=== PATIENT | male | born 1970 | race African-American/Black ===

== ENCOUNTER 2019-12-26 16:35 | Emergency (ER) | payer SELFPAY ==
[~2019-12-26] VITALS: Ht 188 cm; Wt 117.0 kg
[2019-12-26] MEDS ORDERED: SODIUM CHLORIDE 0.9% 1,000 ML IV ONE (17:11)
[2019-12-26] MEDS ORDERED: ACETAMINOPHEN 325MG TABLET PO STA (17:11)
[2019-12-26] MEDS ORDERED: VANCOMYCIN 1 G PREMIX 200 ML IV ONE (17:15)
[2019-12-26] MEDS ORDERED: PIPERACILLIN/TAZ 3.375G PREMIX 50 ML IV ONE (17:15)
[2019-12-26] MEDS ORDERED: SODIUM CHLORIDE 0.9% 1000ML BAG (SEPSIS BOLUS) IV ONE (17:15)
[2019-12-26 17:40] LABS: BASOPHILS % 0.7 % (0.0-2.0); EOSINOPHILS % 0.2 % (0.0-5.0); HEMATOCRIT. 44.4 % (42.0-52.0); LYMPHOCYTES % 9.1 % (20.0-50.0); MEAN CORPUSCULAR HEMOGLOBIN 29.8 pg (28.0-32.0); MEAN CORPUSCULAR VOLUME 87.9 fL (80.0-94.0); PLATELET 187 x1000/uL (130-400); RED BLOOD CELL COUNT 5.05 mill/uL (4.7-6.1); RED CELL DISTRIBUTION WIDTH 13.5 % (11.6-14.6)
[2019-12-26 17:44] LABS: CHLORIDE 102 mEq/L (98-107)
[2019-12-26 17:45] LABS: PROTHROMBIN TIME 10.4 sec (9.6-11.0)
[2019-12-26 19:15] LABS: CLARITY URINE CLEAR (CLEAR); COLOR URINE YELLOW (YELLOW); KETONES URINE NEGATIVE (NEGATIVE); LEUKOCYTE ESTERASE URINE NEGATIVE (NEGATIVE); NITRITE URINE NEGATIVE (NEGATIVE); OCCULT BLOOD URINE NEGATIVE (NEGATIVE); PROTEIN URINE NEGATIVE (NEGATIVE); SPECIFIC GRAVITY URINE 1.013 (1.005-1.030); UROBILINOGEN URINE 0.2 E.U./dL (0.2-1.0)
[2019-12-26] MEDS ORDERED: IOHEXOL-300 100 ML BOTTLE ONE (21:34)
[2019-12-26] MEDS ORDERED: SODIUM CHLORIDE 0.45% 1,000 ML IV SCH (23:09)
[2019-12-26] MEDS ORDERED: ENOXAPARIN 40MG/0.4ML SYR SUBCUT SCH (23:15)
[2019-12-26] MEDS ORDERED: ONDANSETRON HCL 4MG/2ML INJ IV PRN (23:15)
[2019-12-26] MEDS ORDERED: HYDROCODONE/ACETAMINOPHEN 10/325MG TABLET PO PRN (23:15)
[2019-12-26] MEDS ORDERED: DEXTROSE 50% WATER 50ML SYRINGE IV PRN (23:15)
[2019-12-26] MEDS ORDERED: IPRATROPIUM/ALBUTEROL 0.5-3(2.5)MG/3ML NEB NEB PRN (23:15)
[2019-12-26] MEDS ORDERED: NA PHOS,M-B/NA PHOS,DI-BA ENEMA 118ML PR PRN (23:15)
[2019-12-26] MEDS ORDERED: MAGNESIUM/ALUMINUM HYDROXIDE/SIMETHICONE 30ML UDC PO PRN (23:15)
[2019-12-26] MEDS ORDERED: PIPERACILLIN/TAZ 3.375G PREMIX 50 ML IV SCH (23:15)
[2019-12-26] MEDS ORDERED: MORPHINE SULFATE 2 MG/ML CPJ (NOT FOR IM USE) IV PRN (23:15)
[2019-12-26] MEDS ORDERED: CLONIDINE 0.1MG TABLET PO PRN (23:15)
[2019-12-26] MEDS ORDERED: GUAIFENESIN 200MG/10ML SUGAR FREE UDC PO PRN (23:15)
[2019-12-26] MEDS ORDERED: DIPHENHYDRAMINE 50MG/ML VIAL IV PRN (23:15)
[2019-12-26] MEDS ORDERED: ACETAMINOPHEN 325MG TABLET PO PRN (23:15)
[2019-12-26] MEDS ORDERED: HYDRALAZINE 20MG/ML VIAL IV PRN (23:15)
[2019-12-26] MEDS ORDERED: DOCUSATE SODIUM 100MG CAPSULE PO PRN (23:15)
[2019-12-26] MEDS ORDERED: LORAZEPAM 2MG/ML CPJ IV PRN (23:15)
[2019-12-27 00:10] VITALS: BP 153/88
[2019-12-27] MEDS ORDERED: SODIUM CHLORIDE 0.9% INJ 3ML FLUSH IVF SCH (06:00)
[2019-12-27] MEDS ORDERED: INSULIN LISPRO 100 UNITS/ML SUBCUT SCH (08:20)
[2019-12-27] MEDS ORDERED: BLOOD SUGAR DIAGNOSTIC STRIP TEST SCH (09:00)
== END 2019-12-27 01:51 | disposition left against medical advice (07) ==
LOC: ER 16:35 → EDBEDREQSVC 20:00 → EDBEDREQTM 20:02 → EDBEDREQ 20:02 → ER 12-27 01:51 → CANRESERV 12-27 13:59 → ENRESERV 12-27 13:59 → CANBEDREQ 12-27 16:55
DX: K08.89 Other specified disorders of teeth and supporting structures (principal); R65.10 Systemic inflammatory response syndrome (SIRS) of non-infectious origin without acute organ dysfunction; D66 Hereditary factor VIII deficiency
CPT/HCPCS: 36415; 70487; 71045; 80053; 81003; 83605; 84145; 84484; 85025; 85610; 87040; 87086; 93005; 96361; 96365; 96366; 96368; 96376; 99291; J2270; J2405; J2543; J3370; J7030; Q9967

== ENCOUNTER 2019-12-27 02:02 | Inpatient (IN) | payer SELFPAY ==
[~2019-12-27] VITALS: Ht 185.4 cm; Wt 131.5 kg
[2019-12-27 04:26] LABS: CHLORIDE 103 mEq/L (98-107)
[2019-12-27] MEDS ORDERED: VANCOMYCIN 1 G PREMIX 200 ML IV SCH ×2 (04:45→17:00)
[2019-12-27 04:50] LABS: BASOPHILS % 0.2 % (0.0-2.0); EOSINOPHILS % 0.1 % (0.0-5.0); HEMOGLOBIN. 13.9 g/dL (14.0-18.0); LYMPHOCYTES % 8.5 % (20.0-50.0); MEAN CORPUSCULAR HEMOGLOBIN 29.8 pg (28.0-32.0); MEAN CORPUSCULAR VOLUME 87.5 fL (80.0-94.0); MEAN PLATELET VOLUME 10.5 fl (7.4-10.4); MONOCYTES % 8.2 % (2.0-8.0); PLATELET 174 x1000/uL (130-400); RED BLOOD CELL COUNT 4.68 mill/uL (4.7-6.1); RED CELL DISTRIBUTION WIDTH 13.3 % (11.6-14.6)
[2019-12-27] MEDS ORDERED: MORPHINE SULFATE 4 MG/ML CPJ (NOT FOR IM USE) IV ONE (06:00)
[2019-12-27] MEDS ORDERED: ONDANSETRON HCL 4MG/2ML INJ IV ONE (06:00)
[2019-12-27] MEDS ORDERED: PIPERACILLIN/TAZOBACTAM 3.375GM/50ML PREMIX IV ONE (06:03)
[2019-12-27] MEDS ORDERED: MAGNESIUM/ALUMINUM HYDROXIDE/SIMETHICONE 30ML UDC PO PRN (07:30)
[2019-12-27] MEDS ORDERED: ONDANSETRON HCL 4MG/2ML INJ IV PRN (07:30)
[2019-12-27] MEDS ORDERED: DOCUSATE SODIUM 100MG CAPSULE PO PRN (07:30)
[2019-12-27] MEDS ORDERED: PIPERACILLIN/TAZ 3.375G PREMIX 50 ML IV SCH ×2 (07:30→14:00)
[2019-12-27] MEDS ORDERED: HYDRALAZINE 20MG/ML VIAL IV PRN (07:30)
[2019-12-27] MEDS ORDERED: LORAZEPAM 2MG/ML CPJ IV PRN (07:30)
[2019-12-27] MEDS ORDERED: CLONIDINE 0.1MG TABLET PO PRN (07:30)
[2019-12-27] MEDS ORDERED: GUAIFENESIN 200MG/10ML SUGAR FREE UDC PO PRN (07:30)
[2019-12-27] MEDS ORDERED: DIPHENHYDRAMINE 50MG/ML VIAL IV PRN (07:30)
[2019-12-27] MEDS ORDERED: ACETAMINOPHEN 325MG TABLET PO PRN (07:30)
[2019-12-27] MEDS ORDERED: IPRATROPIUM/ALBUTEROL 0.5-3(2.5)MG/3ML NEB HHN PRN (07:30)
[2019-12-27 09:00] VITALS: BP 137/79
[2019-12-27] MEDS: SODIUM CHLORIDE 0.45% 1,000 ML IV SCH (10:34)
[2019-12-27] MEDS: ENOXAPARIN 30MG/0.3ML SYR SUBCUT SCH ×2 (10:34→21:08)
[2019-12-27] MEDS: HYDROCODONE/ACETAMINOPHEN 10/325MG TABLET PO PRN ×2 (10:36→18:12)
[2019-12-27 12:00] VITALS: BP 139/83
[2019-12-27] MEDS ORDERED: VANCOMYCIN 1,750 MG in DEXT 5% WATER 250 ML IV SCH (14:00)
[2019-12-27 16:00] VITALS: BP 162/102
[2019-12-27] MEDS: SODIUM CHLORIDE 0.9% INJ 3ML FLUSH IVF SCH ×2 (18:08→21:11)
[2019-12-27] MEDS: VANCOMYCIN 1 G PREMIX 200 ML IV SCH ×2 (18:08→21:11)
[2019-12-27 20:00] VITALS: BP 147/93
[2019-12-27] MEDS: MORPHINE SULFATE 2 MG/ML CPJ (NOT FOR IM USE) IV PRN (20:45)
[2019-12-28] VITALS: BP 142/76
[2019-12-28] MEDS: MORPHINE SULFATE 2 MG/ML CPJ (NOT FOR IM USE) IV PRN ×2 (00:40→06:24)
[2019-12-28] MEDS: PIPERACILLIN/TAZOBACTAM 3.375 G in DEXT 5% WATER 100 ML IV SCH ×2 (01:08→05:19)
[2019-12-28] MEDS: SODIUM CHLORIDE 0.45% 1,000 ML IV SCH (03:26)
[2019-12-28 04:00] VITALS: BP 147/93
[2019-12-28] MEDS: SODIUM CHLORIDE 0.9% INJ 3ML FLUSH IVF SCH (05:19)
[2019-12-28] MEDS: VANCOMYCIN 1 G PREMIX 200 ML IV SCH (06:13)
[2019-12-28 06:24] VITALS: BP 142/76
[2019-12-28 07:28] LABS: BASOPHILS % 0.4 % (0.0-2.0); EOSINOPHILS % 0.1 % (0.0-5.0); HEMATOCRIT. 40.4 % (42.0-52.0); HEMOGLOBIN. 13.9 g/dL (14.0-18.0); LYMPHOCYTES % 9.6 % (20.0-50.0); MEAN CORPUSCULAR HEMOGLOBIN 29.9 pg (28.0-32.0); MEAN CORPUSCULAR VOLUME 86.8 fL (80.0-94.0); MEAN PLATELET VOLUME 10.4 fl (7.4-10.4); MONOCYTES % 8.7 % (2.0-8.0); NEUTROPHILS % 81.2 % (40.0-76.0); PLATELET 158 x1000/uL (130-400); RED BLOOD CELL COUNT 4.65 mill/uL (4.7-6.1); RED CELL DISTRIBUTION WIDTH 13.1 % (11.6-14.6)
[2019-12-28 07:34] LABS: CHLORIDE 99 mEq/L (98-107)
[2019-12-28] MEDS: ENOXAPARIN 30MG/0.3ML SYR SUBCUT SCH (08:16)
== END 2019-12-28 11:58 | disposition left against medical advice (07) | DRG 383 ==
LOC: ER 02:02 → 5WST 04:51 → ENRESERV 07:50
PROVIDERS: ADMIT Internal Medicine; ATTEND Internal Medicine
DX: L03.211 Cellulitis of face (principal); D66 Hereditary factor VIII deficiency; R65.10 Systemic inflammatory response syndrome (SIRS) of non-infectious origin without acute organ dysfunction; L02.01 Cutaneous abscess of face; Z53.29 Procedure and treatment not carried out because of patient's decision for other reasons; K04.7 Periapical abscess without sinus; Z96.649 Presence of unspecified artificial hip joint; M27.2 Inflammatory conditions of jaws
CPT/HCPCS: 36415; 80053; 85025; 99285; J1650; J2060; J2270; J2405; J2543; J3370; J7060